=== PATIENT | male | born 1955 | race Caucasian/White ===

== ENCOUNTER 2021-03-29 10:06 | Inpatient (IN) | payer OTHER ==
[2021-03-29] MEDS ORDERED: CEFEPIME/SWI 1gm 10 ML ONE ×2 (14:18→21:39)
[2021-03-29] MEDS ORDERED: NA CHLORIDE 0.9% 3,000 ML ONE (14:18)
--- NOTE | 2021-03-29 14:26 | RAD REPORT ---
EXAM DESCRIPTION: RAD - Foot Left 3 View - 03/29/2021 2:20 pm CLINICAL HISTORY: assess for osteo COMPARISON: No comparisons FINDINGS: Partial amputation of the third and fifth toes. No fracture is identified. Degenerative ch anges are present at the midfoot and first MTP joint. IMPRESSION: No fracture or radiographic evidence of osteomyelitis. MRI is more sensitive in the acut e phase.
[2021-03-29 14:44] LABS: Bilirubin Direct 0.2 mg/dL (0-0.2); Bilirubin Total 0.5 mg/dL (0.2-1.0); CKMB Creatine Kinase MB 2.7 ng/mL (1.0-3.6); Potassium 3.8 mmol/L (3.5-5.1); Protein, Total 7.6 g/dL (6.4-8.2); Troponin (Emerg Dept Use Only) 0.05 ng/mL (0.0-0.045)
[2021-03-29] MEDS ORDERED: VANCOMYCIN/NS 1 gm 1 GM/250 ML BAG IV ONE (14:45)
--- NOTE | 2021-03-29 15:04 | ER ---
Nurse's Notes [facility] Name: Calvin Kincaid Age: 65 yrs Sex: Male : 1955 Arrival Date: 03/29/2021 Time: 10:15 Bed 24 Private MD: Diagnosis: Unspecified open wound, left lower leg;Cellulitis of left lower limb;Other specified sepsis Presentation: 03/29 11:05 Chief complaint: Patient states: Left foot swelling x 1 day, pt is autistic. jl7 Coronavirus screen: Client denies travel out of the [place] in the last 14 days. At this time, the client does not indicate any symptoms associated with coronavirus-19. Ebola Screen: No symptoms or risks identified at this time. Initial Sepsis Screen: Does the patient meet any 2 criteria? No. Patient's initial sepsis screen is negative. Does the patient have a suspected source of infection? No. Patient's initial sepsis screen is negative. Risk Assessment: Do you want to hurt yourself or someone else? Patient reports no desire to harm self or others. Onset of symptoms is unknown. Care prior to arrival: None. 11:05 Method Of Arrival: Ambulatory jl7 11:05 Acuity: DARI 3 jl7 Historical: - Allergies: 11:05 No Known Allergies; jl7 - Home Meds: 10:40 None [Active]; jl7 - PMHx: 11:05 Diabetes mellitus; Hypertensive disorder; Hypothyroidism; Seizure; jl7 11:08 Autisim; jl7 - Immunization history:: Client reports having NOT received the Covid vaccine. - Social history:: Smoking status: Patient reports the use of cigarette tobacco products, smokes one-half pack cigarettes per day. Screenin:49 Abuse screen: Denies threats or abuse. Nutritional screening: No deficits noted. ap3 Tuberculosis screening: No symptoms or risk factors identified. Fall Risk No fall in past 12 months (0 pts). Secondary diagnosis (15 points) seizures, impaired mobility, IV access (20 points). Ambulatory Aid- None/Bed Rest/Nurse Assist (0 pts). Gait- Impaired (20 pts.). Mental Status- Oriented to own ability (0 pts). Assessment: 13:40 General: Appears in no apparent distress. comfortable, Behavior is calm, cooperative, ap3 appropriate for age. Pain: Complains of pain in ball of left foot Pain does not radiate. Neuro: Level of Consciousness is awake, alert, obeys commands, Oriented to person, place, time, patient has hx of autism. . Cardiovascular: Patient's skin is warm and dry. Respiratory: Airway is patent Respiratory effort is even, unlabored, Respiratory pattern is regular, symmetrical. GI: No signs and/or symptoms were reported involving the gastrointestinal system. : No signs and/or symptoms were reported regarding the genitourinary system. EENT: No signs and/or symptoms were reported regarding the EENT system. Derm: Skin is. Derm: Musculoskeletal: Swelling present in right leg and left leg. 14:53 Reassessment: Patient and/or family updated on plan of care and expected duration. Pain ap3 level reassessed. Patient is alert, oriented x 3, equal unlabored respirations, skin warm/dry/pink. family member is at the bedside. Vital Signs: 11:05 BP 147 / 59; Pulse 84; Resp 17; Temp 98.2; Pulse Ox 100% on R/A; Weight 99.79 kg; jl7 Height 6 ft. 2 in. (187.96 cm); Pain 0/10; 14:01 BP 162 / 73; Pulse 87; Pulse Ox 100% on R/A; ap3 15:03 BP 155 / 71; Pulse 84; Resp 27; Pulse Ox 97% on R/A; ap3 11:05 Body Mass Index 28.25 (99.79 kg, 187.96 cm) jl7 ED Course: 10:15 Patient arrived in ED. am2 10:40 Triage completed. jl7 10:46 Lisa Solorio, RN is Primary Nurse. iw 11:07 Arm band placed on right wrist. Patient placed in waiting room, Patient notified of jl7 wait time. 13:34 Lima Hager is Attending Physician. sp3 13:50 Patient has correct armband on for positive identification. Bed in low position. Call ap3 light in reach. Side rails up X2. Adult w/ patient. Pulse ox on. NIBP on. Door closed. Noise minimized. 14:01 X-Ray at the bedside. ap3 14:19 XRAY Foot LEFT 3 View In Process Unspecified. EDMS 14:52 Dressings: Vaseline gauze X 1; ball of left foot. ap3 15:00 Primary Nurse role handed off by Lisa Solorio RN ap3 15:00 Dolores Reed RN is Primary Nurse. ap3 15:02 Flip Tse MD is Hospitalizing Provider. sp3 18:51 ultrrasound at bedside. ap3 19:18 Primary Nurse role handed off by Dolores Reed RN mw2 Administered Medications: 14:00 Drug: NS 0.9% (30 ml/kg) 30 ml/kg {Note: 2,991 ml.} Route: IV; Rate: bolus; Site: right ap3 antecubital; 14:30 Drug: Cefepime 1 grams Route: IVPB; Rate: 200 ml/hr; Infused Over: 30 mins; Site: left ap3 antecubital; 17:42 Follow up: IV Status: Completed infusion ap3 17:42 Drug: vancoMYCIN 1 grams Route: IVPB; Infused Over: 2 hrs; Site: left antecubital; ap3 Outcome: 15:04 Decision to Hospitalize by Provider. sp3 08 18:27 Patient left the ED. mt Signatures: Dispatcher [employer] EDMS Lisa Solorio RN RN Amari Dunbar RN RN jl7 Dolores Gallo am2 Alaina Schmidt sd Dolores Reed RN RN ap3 Grover Lim mw2 Lima Hager sp3 Corrections: (The following items were deleted from the chart) 03/29 10:41 10:40 Allergies: No Known Allergies; [place] [address] 11:05 10:36 Chief complaint: Patient states: Bilateral legs went number, vision went blurry jl7 and my head hurt like a severe migraine at 0530 this morning, lasting 15 minutes; symptoms resolved except the headache; vision also went blurry last night 7 11: 10:36 Coronavirus screen: Client denies travel out of the [place] in the last 14 days. At [facility] this time, the client does not indicate any symptoms associated with coronavirus-19. jl7 11:05 10:36 Ebola Screen: No symptoms or risks identified at this time. [place] [address] 11:05 10:36 Initial Sepsis Screen: Does the patient meet any 2 criteria? No. Patient's [facility] initial sepsis screen is negative. Does the patient have a suspected source of infection? No. Patient's initial sepsis screen is negative. [facility] 10:36 Risk Assessment: Do you want to hurt yourself or someone else? Patient reports no [facility] desire to harm self or others. [facility] 10:36 Onset of symptoms is unknown. [facility] 10:36 Care prior to arrival: None. [place] [address] 10:36 Method Of Arrival: Ambulatory [place] [address] 10:36 BP 153 / 78; Pulse 107bpm; Resp 17bpm; Pulse Ox 97%; Temp 98.5F; 86.18 kg; Height [facility] 5 ft. 2 in.; BMI: 34.7; Pain 10/10; [facility] 10:36 Acuity: DARI 3 [place] [address] 10:40 Allergies: Amoxicillin; [place] [address] 10:40 PMHx: None; [facility] 10:40 PSHx: section; [place] [address] 10:40 Arm band placed on right wrist. [place] [address] 11:05 Chief complaint: Patient states: Left foot swelling x 1 day [place] [id number]
--- NOTE | 2021-03-29 15:04 | EDPHYS ---
Physician Documentation [facility] Name: Calvin Kincaid Age: 65 yrs Sex: Male : 1955 Arrival Date: 03/29/2021 Time: 10:15 Bed 24 Private MD: ED Physician Lima Hager HPI: 03/29 14:13 This 65 yrs old Male presents to ER via Ambulatory with complaints of Leg sp3 Swelling, foot swelling, Wound Infection, Fever. 14:13 5-year-old male with a history of autism, epilepsy, hypertension, diabetes, chronic sp3 left plantar wound, who presents to the ED for infection, swelling, redness of his left plantar foot along with T-max fever 102 Fahrenheit at home yesterday evening. Patient also obtained a abrasion/surface laceration while walking barefoot during their house moving process which may have also contributed to patient's current symptoms. Caregiver is [id number] who is also at the bedside. Patient sister is a nurse who finally assessed the wound and suspected sepsis which is why they present to the ED today. Patient denies any pain, redness, swelling proximal to the foot. On ROS patient denies URI symptoms known COVID-19 contacts, neck pain, chest pain, shortness breath, abdominal pain, nausea, vomiting, diarrhea, syncope, near syncope, other rash, change in baseline neurological sensory status.. Historical: - Allergies: 11:05 No Known Allergies; jl7 - Home Meds: 10:40 None [Active]; jl7 - PMHx: 11:05 Diabetes mellitus; Hypertensive disorder; Hypothyroidism; Seizure; jl7 11:08 Autisim; jl7 - Immunization history:: Client reports having NOT received the Covid vaccine. - Social history:: Smoking status: Patient reports the use of cigarette tobacco products, smokes one-half pack cigarettes per day. ROS: 14:16 Eyes: Negative for injury, pain, redness, and discharge, ENT: Negative for injury, sp3 pain, and discharge, Neck: Negative for injury, pain, and swelling, Cardiovascular: Negative for chest pain, palpitations, and edema, Respiratory: Negative for shortness of breath, cough, wheezing, and pleuritic chest pain, Abdomen/GI: Negative for abdominal pain, nausea, vomiting, diarrhea, and constipation, Neuro: Negative for headache, weakness, numbness, tingling, and seizure. 14:16 Constitutional: Positive for fever. 14:16 Skin: Positive for cellulitis, discoloration, erythema, swelling, Negative for abscesses, jaundice, pallor. Exam: 14:17 Constitutional: This is a well developed, well nourished patient who is awake, alert, sp3 and in no acute distress. Head/Face: Normocephalic, atraumatic. Eyes: Pupils equal round and reactive to light, extra-ocular motions intact. Lids and lashes normal. Conjunctiva and sclera are non-icteric and not injected. Cornea within normal limits. Periorbital areas with no swelling, redness, or edema. ENT: Nares patent. No nasal discharge, no septal abnormalities noted. External auditory canals are clear. Oropharynx with no redness, swelling, or masses, exudates, or evidence of obstruction, uvula midline. Mucous membranes moist. Neck: Trachea midline, no thyromegaly or masses palpated, and no cervical lymphadenopathy. Supple, full range of motion without nuchal rigidity, or vertebral point tenderness. No Meningismus. Chest/axilla: Normal chest wall appearance and motion. Nontender with no deformity. No lesions are appreciated. Cardiovascular: Regular rate and rhythm with a normal S1 and S2. No gallops, murmurs, or rubs. Normal PMI, no JVD. No pulse deficits. Respiratory: Lungs have equal breath sounds bilaterally, clear to auscultation and percussion. No rales, rhonchi or wheezes noted. No increased work of breathing, no retractions or nasal flaring. Abdomen/GI: Soft, non-tender, with normal bowel sounds. No distension or tympany. No guarding or rebound. No evidence of tenderness throughout. 14:17 Skin: cellulitis, Patient is a plantar wound which is draining serosanguineous fluid and moderate swelling of the foot itself along with ecchymoses, discoloration, erythema consistent with moderate to severe soft tissue infection. No other SIRS criteria are present., induration, lesion(s). Vital Signs: 11:05 BP 147 / 59; Pulse 84; Resp 17; Temp 98.2; Pulse Ox 100% on R/A; Weight 99.79 kg; jl7 Height 6 ft. 2 in. (187.96 cm); Pain 0/10; 14:01 BP 162 / 73; Pulse 87; Pulse Ox 100% on R/A; ap3 15:03 BP 155 / 71; Pulse 84; Resp 27; Pulse Ox 97% on R/A; ap3 11:05 Body Mass Index 28.25 (99.79 kg, 187.96 cm) jl7 MDM: 13:34 Patient medically screened. sp3 14:19 Data reviewed: vital signs, nurses notes, lab test result(s), radiologic studies. Other sp3 consultation: Not suspecting gas-forming bacteria or surgical emergency. Will admit patient and obtain laboratory values, blood cultures, x-ray to determine osteomyelitis, start patient on vancomycin and cefepime for early sepsis. Patient is hemodynamically stable.. 14:59 ED course: EKG demonstrates normal sinus rhythm at 85 bpm with normal intervals, normal sp3 axis, normal QRS with nonspecific diffuse ST/T changes concerning for acute coronary syndrome at this time given clinical history. Patient's been started on cefepime and vancomycin will admit to the hospitalist services patient is from [place] and has no local physicians.. 15:00 ED course: Normal saline 1 L will also be given for a lactate of 2.4 which is mildly sp3 elevated.. 03/29 13:47 Order name: Basic Metabolic Panel 3 03/29 13:47 Order name: Blood Culture Adult (2) 3 03/29 13:47 Order name: CBC with Diff 3 03/29 13:47 Order name: CPK 3 03/29 13:47 Order name: Ckmb; Complete Time: 15:00 3 03/29 13:47 Order name: LFT's; Complete Time: 15:00 sp3 03/29 13:47 Order name: Lactate; Complete Time: 15:00 3 03/29 13:47 Order name: Lipase; Complete Time: 15:00 3 03/29 13:47 Order name: Procalcitonin; Complete Time: 15:00 3 03/29 13:47 Order name: Protime (+inr) 3 03/29 13:47 Order name: Ptt, Activated sp3 03/29 13:47 Order name: Troponin (emerg Dept Use Only); Complete Time: 15:00 3 03/29 13:48 Order name: Basic Metabolic Panel; Complete Time: 15:00 EDMS 03/29 13:48 Order name: Blood Culture [facility] 03/29 13:48 Order name: CBC with Automated Diff; Complete Time: 23:54 EDMS 03/29 13:48 Order name: Creatine Phosphokinase; Complete Time: 15:00 EDMS 03/29 14:31 Order name: Wound Culture ap3 03/29 15:41 Order name: SARS-COV-2 RT PCR; Complete Time: 23:54 EDMS 03/29 15:59 Order name: Lipid Profile [facility] 03/29 15:59 Order name: Hemoglobin A1c; Complete Time: 23:54 EDMS 03/29 20:31 Order name: Lactate Sepsis 2 HR Follow-up; Complete Time: 23:54 EDMS 03/29 21:23 Order name: Glucose, Ancillary Testing; Complete Time: 23:54 EDMS 03/29 22:22 Order name: Phosphorus; Complete Time: 23:54 MS 03/29 22:22 Order name: Creatine Phosphokinase; Complete Time: 23:54 MS 03/29 22:22 Order name: Lipid Profile; Complete Time: 23:54 EDMS 03/29 22:22 Order name: Magnesium; Complete Time: 23:54 MS 03/30 03:39 Order name: CBC with Automated Diff [facility] 03/30 04:05 Order name: Basic Metabolic Panel [facility] 03/30 04:05 Order name: Phosphorus [facility] 03/29 13:47 Order name: Accucheck; Complete Time: 14:30 3 03/29 13:47 Order name: Cardiac monitoring; Complete Time: 13:52 [facility] 03/29 13:47 Order name: EKG - Nurse/Tech; Complete Time: 14:51 3 03/29 13:47 Order name: IV Saline Lock - Large Bore; Complete Time: 13:52 3 03/29 13:47 Order name: Labs collected and sent; Complete Time: 13:52 3 03/29 13:47 Order name: XRAY Foot LEFT 3 View; Complete Time: 15:00 3 03/29 14:29 Order name: Labs - recollect needed: cbc \T\ pt/ptt; Complete Time: 15:43 3 03/29 18:18 Order name: MRI; Complete Time: 23:54 EDMS 03/29 18:27 Order name: RAD; Complete Time: 23:54 EDMS 03/29 19:36 Order name: US; Complete Time: 23:54 EDMS 03/29 19:40 Order name: US; Complete Time: 23:54 EDMS 03/29 21:33 Order name: US; Complete Time: 23:54 EDMS 03/30 04:05 Order name: T4 Free EDMS 03/30 04:05 Order name: Magnesium EDMS 03/30 04:05 Order name: Thyroid Stimulating Hormone EDMS 03/30 07:56 Order name: Glucose, Ancillary Testing EDMS 03/30 13:23 Order name: Glucose, Ancillary Testing EDMS Administered Medications: 14:00 Drug: NS 0.9% (30 ml/kg) 30 ml/kg {Note: 2,991 ml.} Route: IV; Rate: bolus; Site: right ap3 antecubital; 14:30 Drug: Cefepime 1 grams Route: IVPB; Rate: 200 ml/hr; Infused Over: 30 mins; Site: left ap3 antecubital; 17:42 Follow up: IV Status: Completed infusion ap3 17:42 Drug: vancoMYCIN 1 grams Route: IVPB; Infused Over: 2 hrs; Site: left antecubital; ap3 Disposition Summary: 03/29/21 15:04 Hospitalization Ordered Hospitalization Status: Inpatient Admission sp3 Provider: Flip Tse sp3 Condition: Fair sp3 Problem: an acute exacerbation sp3 Symptoms: have worsened sp3 Bed/Room Type: Standard sp3 Location: [facility] ER HOLD(03/29/21 16:04) bd Room Assignment: ERHOLD-(03/29/21 16:04) bd Diagnosis - Unspecified open wound, left lower leg sp3 - Cellulitis of left lower limb sp3 - Other specified sepsis sp3 Forms: - Medication Reconciliation Form sp3 - SBAR form sp3 Signatures: Dispatcher [employer] EDMS Cheyenne Collazo Lee, SLEEP MEDICINE PHYSICIAN-C SLEEP MEDICINE PHYSICIAN-Cla1 Amari Dunbar RN RN jl7 [place] Amanda, RN RN ap3 Lima Hager sp3 Corrections: (The following items were deleted from the chart) 10:41 10:40 Allergies: No Known Allergies; love aleman 10:53 10:43 Head Brain Wo Cont+CT.RAD.DELMER ordered. EDMS EDMS 11: 10:40 Allergies: Amoxicillin; jl7 jl7 11: 10:40 PMHx: None; jl7 jl7 11: 10:40 PSHx: section; jl7 jl7 14:44 13:59 CORONAVIRUS+MR.LAB.DELMER ordered. EDMS EDMS 16:04 15:04 Telemetry/MedSurg (Inpatient) sp3 bd 16:04 15:04 sp3 bd
[2021-03-29] MEDS ORDERED: HYDROCODONE/APAP 5/325 MG TAB PO PRN (16:20)
[2021-03-29] MEDS ORDERED: ONDANSETRON 4 MG/2 ML VIAL IV PRN ×2 (16:20→16:23)
[2021-03-29] MEDS ORDERED: ACETAMINOPHEN 500 MG TAB PO PRN (16:23)
--- NOTE | 2021-03-29 16:29 | P.HP ---
Certification for Inpatient Patient admitted to: Inpatient With expected LOS: >2 Midnights Patient will require the following post-hospital care: None Practitioner: I am a practitioner with admitting privileges, knowledge of patient current condition, hospital course, and medical plan of care. Services: Services provided to patient in accordance with Admission requirements found in Title 42 Section 412.3 of the Code of Federal Regulations <Demetris Dixon - Last Filed: 03/29/21 16:47> Patient admitted to: Inpatient Patient will require the following post-hospital care: Other (LTAC) Practitioner: I am a practitioner with admitting privileges, knowledge of patient current condition, hospital course, and medical plan of care. Services: Services provided to patient in accordance with Admission requirements found in Title 42 Section 412.3 of the Code of Federal Regulations <Sam Villa - Last Filed: 03/29/21 17:01> Patient History Date of Service: 03/29/21 Reason for admission: Left foot cellulitis\wound History of Present Illness: Patient is a 65-year-old male with a past medical history significant for hypertension, DM 2, hypothyroidism, seizure, autism who presents with complaint of left foot swelling, redness and left plantar foot wound infection. Family reported that patient has been having a chronic left plantar wound for the past 1 year but did notice drainage coming from patient's left foot 2 days ago. Patient resides in [place], [place] and patient reported that he suffered an abrasion to the left foot during the time that they were moving stuff for travel. Patient does not have any feeling in her lower extremities. Patient reported associated signs and symptoms of fever and chills. Patient denies any other signs or symptoms. Symptoms are aggravated or relieved by nothing. Family decided to send patient to the hospital for medical evaluation. Home medications list reviewed: No - Past Medical/Surgical History Diabetic: Yes -: Hypothyroidism -: Hypertension -: DM2 -: Autism Past Surgical History: Reviewed- Non-Contributory - Family History Family History: Reviewed- Non-Contributory (Reviewed and Patient unaware of any family history) - Social History Smoking Status: Former smoker Alcohol use: No Caffeine use: Yes Place of Residence: Home <Demetris Dixon - Last Filed: 03/29/21 16:47> Date of Service: 03/29/21 - Past Medical/Surgical History Psychosocial/ Personal History: Lives with Sister. From [place] - Family History Family History: Reviewed- Non-Contributory <Sam Villa - Last Filed: 03/29/21 17:01> Allergies No Known Allergies Allergy (Unverified 03/29/21 14:35) Review of Systems General: Fever, Chills Eyes: Unremarkable ENT: Unremarkable Respiratory: Unremarkable Cardiovascular: Unremarkable Gastrointestinal: Unremarkable Genitourinary: Unremarkable Musculoskeletal: Other (Left foot swelling) Integumentary: Other (left foot wound ) Neurological: Unremarkable Lymphatics: Unremarkable <DestinyDemetris E - Last Filed: 03/29/21 16:47> Physical Examination - Physical Exam General: Alert, In no apparent distress, Oriented x3 HEENT: Atraumatic, PERRLA, Mucous membr. moist/pink, EOMI, Sclerae nonicteric Neck: Supple, 2+ carotid pulse no bruit, No LAD, Without JVD or thyroid abnormality Respiratory: Clear to auscultation bilaterally, Normal air movement Cardiovascular: Regular rate/rhythm, Normal S1 S2 Capillary refill: <2 Seconds Gastrointestinal: Normal bowel sounds, Soft and benign, No tenderness Musculoskeletal: Swelling, Erythema, Tenderness Integumentary: No rashes, Erythema, Diabetic ulcer, Other (Left foot wound) Neurological: Normal gait, Normal speech, Normal tone, Normal affect Lymphatics: No axilla or inguinal lymphadenopathy External genitalia: Deferred Rectal: Deferred - Studies Laboratory Data (last 24 hrs) 03/29/21 13:55: Sodium 137, Potassium 3.8, BUN 29 H, Creatinine 1.43 H, Glucose 301 H, Total Bilirubin 0.5, AST 37, ALT 60, Alkaline Phosphatase 76, Lipase 120 <DestinyDemetris Angelina - Last Filed: 03/29/21 16:47> - Studies Laboratory Data (last 24 hrs) 03/29/21 13:55: Sodium 137, Potassium 3.8, BUN 29 H, Creatinine 1.43 H, Glucose 301 H, Total Bilirubin 0.5, AST 37, ALT 60, Alkaline Phosphatase 76, Lipase 120 <Sam Villa - Last Filed: 03/29/21 17:01> Assessment and Plan - Plan --Left foot cellulitis. Blood cultures pending. Continue antibiotics. --Left foot wound. Patient has a history of osteomyelitis. MRI left foot pen ding to rule out osteomyelitis. Wound cultures pending. Surgeon consulted. Continue antibiotics. --DM2. Poorly controlled. BS monitoring with sliding scale insulin, pre-meal insulin and Lantus. --History of autism. Continue supportive care. --Hypothyroidism. Continue home medication available. --Hypertension. Poorly controlled. Continue home medications when available and labetalol as needed. --History of seizures. Seizure precautions. Continue home medications when available --DVT prophylaxis with heparin subQ I have had discussion about advanced directives with the patient during this hospital admission. Addressed code status and /or goals of care. Spent more than 15 minutes. Case discussed withpatient and nurse. Discharge Plan: Home Plan to discharge in: 48 Hours - Advance Directives Does patient have a Living Will: No Does patient have a Durable POA for Healthcare: No - Code Status/Comfort Care Code Status Assessed: Yes Code Status: Full Code Physician Review: Patient Assessed, Agree with Above Assessment and Plan Critical Care: No <Demetris Dixon E - Last Filed: 03/29/21 16:47> - Plan As discussed with nurse practitioner. Agree with plan of care. COVID: Negative Left foot x-ray: COMPARISON: No comparisons FINDINGS: Partial amputation of the third and fifth toes. No fracture is identified. Degenerative changes are present at the midfoot and first MTP joint. IMPRESSION: No fracture or radiographic evidence of osteomyelitis. MRI is more sensitive in the acute phase. Impression: Left foot cellulitis with suspected osteomyelitis Diabetes mellitus type 2 with hyperglycemia insulin-dependent Acute renal insufficiency Hypertension Hypothyroidism Seizure disorder Obesity Plan: Left foot cellulitis with suspected osteomyelitis: Patient will be admitted for treatment. Will start vancomycin and and cefepime. Pharmacy to monitor and adjust medication. Will check MRI of the left lower extremity to further evaluate. Will also check arterial Dopplers of the lower extremity to evaluate for PAD. Surgery consulted. Will discuss with surgery about the possible need for intervention. Amputation may need to be considered. If with osteomyelitis patient will likely require long-term acute care facility placement for prolonged IV antibiotic therapy. Will order PICC line. Will obtain echocardi ogram. Await further recommendations from surgery. Diabetes mellitus type 2 with hyperglycemia insulin-dependent: Will monitor Accu-Cheks. Sliding scale in place. Will check hemoglobin A1c. Will start basal insulin after surgery. Acute renal insufficiency: We will start IV fluids. Will monitor renal function. Will check renal ultrasound. Hypertension: Obtain and verify home medication. Hypothyroidism: Obtain and verify how medication. Seizure disorder: Obtain and verify how medication. Obesity: We will check BMI. Lifestyle modification education provided. DVT prophylaxis: Lovenox CODE STATUS: Full code Advance care [id number] minutes: Patient originally from [place]. Lives with sister who travels as a traveling nurse. Patient will likely require long-term acute care facility placement. This was discussed with family member. Time Spent Managing Pts Care (In Minutes): 55 <Sam Villa - Last Filed: 03/29/21 17:01>
[2021-03-29] MEDS: INSULIN -REGULAR HUMAN 50 UNIT/0.5 ML ML SQ SCH ×2 (16:30→21:19)
[2021-03-29] MEDS ORDERED: VANCOMYCIN/NS 1 gm 1 GM/250 ML BAG IVPB SCH (16:30)
[2021-03-29] MEDS ORDERED: D50W 25 GM/50 ML SYRINGE IV PRN (16:45)
[2021-03-29] MEDS ORDERED: GLUCAGON 1 MG/VIAL IM PRN (16:45)
[2021-03-29] MEDS: HEPARIN 5000 UNIT/ML 1 ML VIAL SQ SCH (17:00)
[2021-03-29] MEDS ORDERED: INSULIN LISPRO 100 UNIT/1 ML SQ SCH (17:00)
[2021-03-29] MEDS ORDERED: HYDROCODONE/APAP 7.5/325 MG TAB PO PRN (17:05)
[2021-03-29] MEDS ORDERED: TRAMADOL HCL 50 MG TAB PO PRN (17:05)
[2021-03-29] MEDS: VANCOMYCIN 750 MG in NA CHLORIDE 0.9% 150 ML IVPB ONE ×2 (18:00→20:29)
[2021-03-29] MEDS: NA CHLORIDE 0.9% 1,000 ML IV SCH (18:00)
[2021-03-29] MEDS ORDERED: VANCOMYCIN 1.75 GM in NA CHLORIDE 0.9% 500 ML IVPB SCH (18:00)
[2021-03-29 18:15] VITALS: BMI 28.2
--- NOTE | 2021-03-29 18:17 | RAD REPORT ---
EXAM DESCRIPTION: MRI - Foot Left Wo Cont - 03/29/2021 5:52 pm CLINICAL HISTORY: R O Osteomyelitis COMPARISON: Foot Left 3 View dated 03/29/2021 FINDINGS: There is diffuse edema throughout the subcutaneous tissues of the left foot. There are adv anced degenerative changes at the first MTP joint as well as with synovial thickening and enhancement and joint fluid. There are erosions along the metatarsal head. There is a wound is subjacent to the great toe and second toe at the level of the metatarsal joints. Postsurgical changes from partial amputation of the fifth digit at the level of the MTP joint and par tial resection of the third proximal phalanx. IMPRESSION: No definite evidence of osteomyelitis however difficult to entirely exclude a septic shar nt at the first MTP. No abscess.
--- NOTE | 2021-03-29 18:26 | RAD REPORT ---
EXAM DESCRIPTION: RAD - Chest Single View - 03/29/2021 6:05 pm CLINICAL HISTORY: preop COMPARISON: No comparisons FINDINGS: No evidence of edema or pneumonia. The heart size is within normal limits.No acute osseous abnormality. No significant pleural effusions or pneumothorax. IMPRESSION: No acute cardiopulmonary disease.
--- NOTE | 2021-03-29 19:34 | RAD REPORT ---
EXAM DESCRIPTION: US - Extremity Venous Uni Ltd - 03/29/2021 7:25 pm CLINICAL HISTORY: Left lower extremity cellulitis COMPARISON: None. TECHNIQUE: Real-time sonographic evaluation of the left lower extremity deep venous system was perfo rmed. FINDINGS: Normal compressibility, flow augmentation, phasic flow and spontaneous flow is identified in the left lower extremity deep venous system. No intraluminal filling defects seen. Incidental note of an enlarged left inguinal lymph node measuring 2.7 centimeters. IMPRESSION: No DVT in the left lower extremity. Enlarged left inguinal lymph node. This may be reac tive to the process in the left lower extremity but could also represent malignancy.
--- NOTE | 2021-03-29 19:39 | RAD REPORT ---
EXAM DESCRIPTION: US - Renal Ultrasound-Complete - 03/29/2021 7:25 pm CLINICAL HISTORY: acute renal insufficiency, DM/HTN COMPARISON: No comparisonsNo comparisons FINDINGS: Both kidneys are normal in size, shape and echotexture. The right kidney measures 11.5 cm. No hydronephrosis or perinephric fluid. 13 millimeter right upper pole renal cyst. The left kidney measures 10.5 cm. No hydronephrosis, focal mass or perinephric fluid. The urinary bladder is incompletely distended without gross abnormality seen. IMPRESSION: No evidence of hydronephrosis. Small right renal cyst.
[2021-03-29 20:28] LABS: Absolute Lymphocytes (CBC) 1.1 K/uL (0.7-4.9); Basophils % 0.3 % (0-1.3); Hematocrit 34.5 % (39.6-49.0); Lymphocytes % 8.6 % (15.3-44.8); MPV 8.1 fL (7.6-11.3); RBC Red Blood Cell Count 3.81 M/uL (4.33-5.43)
[2021-03-29] MEDS ORDERED: CEFEPIME 1 GM/VIAL IV SCH (21:00)
[2021-03-29] MEDS ORDERED: INSULIN GLARGINE 100 UNITS/ML SQ SCH ×2 (21:00)
[2021-03-29] MEDS: CEFEPIME/SWI 1gm 10 ML IVP SCH (21:19)
--- NOTE | 2021-03-29 21:32 | RAD REPORT ---
EXAM DESCRIPTION: US - Lower Extremity Artery Uni Ltd - 03/29/2021 7:25 pm CLINICAL HISTORY: Leg pain COMPARISON: None FINDINGS: The common femoral, superficial femoral and popliteal arteries bilaterally demonstrate triphasic wave forms The posterior tibial and dorsalis pedis arteries demonstrate monophasic waveforms bilaterally. IMPRESSION: Monophasic waveforms in the dorsalis pedis and posterior tibial artery consistent with s evere peripheral arterial disease.
[2021-03-29 21:35] LABS: Magnesium 1.8 mg/dL (1.8-2.4); Phosphorus 1.7 mg/dL (2.5-4.9)
[2021-03-29] MEDS ORDERED: INSULIN GLARGINE 100 UNITS/ML SQ ONE (21:40)
[2021-03-29] MEDS ORDERED: INSULIN -REGULAR HUMAN 50 UNIT/0.5 ML ML ONE (21:41)
[2021-03-29] MEDS: LACTOBACILLUS/ACIDOPHILUS TAB PO SCH (22:25)
[2021-03-30] MEDS ORDERED: HEPARIN 5000 UNIT/ML 1 ML VIAL ONE (00:43)
[2021-03-30] MEDS: HEPARIN 5000 UNIT/ML 1 ML VIAL SQ SCH ×3 (01:00→17:00)
[2021-03-30 03:25] LABS: Absolute Lymphocytes (CBC) 0.9 K/uL (0.7-4.9); Basophils % 0.3 % (0-1.3); Hematocrit 30.8 % (39.6-49.0); Lymphocytes % 9.1 % (15.3-44.8); MPV 7.6 fL (7.6-11.3); RBC Red Blood Cell Count 3.44 M/uL (4.33-5.43)
[2021-03-30 03:45] LABS: Protime INR 1.14
[2021-03-30 04:01] LABS: Magnesium 1.8 mg/dL (1.8-2.4); Phosphorus 1.7 mg/dL (2.5-4.9); Potassium 3.5 mmol/L (3.5-5.1)
[2021-03-30 04:05] LABS: Thyroid Stimulating Hormone 3.77 uIU/mL (0.360-3.740)
--- NOTE | 2021-03-30 06:24 | P.PN ---
Subjective Date of Service: 03/30/21 Primary Care Provider: Lupe Mendez Chief Complaint: Left foot cellulitis\wound Subjective: Other (Overall stable.) Physical Examination - Vital Signs Temperature: 97.4 F Blood Pressure: 159/79 Pulse: 75 Respirations: 23 Pulse Ox (%): 96 - Studies Laboratory Data (last 24 hrs) 03/29/21 13:55: Sodium 137, Potassium 3.8, BUN 29 H, Creatinine 1.43 H, Glucose 301 H, Total Bilirubin 0.5, AST 37, ALT 60, Alkaline Phosphatase 76, Lipase 120 Assessment & Plan Discharge Plan: LTAC Plan to discharge in: 48 Hours Physician Review Additional Text: COVID: Negative Left foot x-ray: COMPARISON: No comparisons FINDINGS: Partial amputation of the third and fifth toes. No fracture is identi fied. Degenerative changes are present at the midfoot and first MTP joint. IMPRESSION: No fracture or radiographic evidence of osteomyelitis. MRI is more sensitive in the acute phase. CXR: COMPARISON: No comparisons FINDINGS: No evidence of edema or pneumonia. The heart size is within normal limits.No acute osseous abnormality. No significant pleural effusions or pneu mothorax. IMPRESSION: No acute cardiopulmonary disease. MRI Foot: COMPARISON: Foot Left 3 View dated 03/29/2021 FINDINGS: There is diffuse edema throughout the subcutaneous tissues of the left foot. There are advanced degenerative changes at the first MTP joint as well as with synovial thickening and enhancement and joint fluid. There are erosions along the metatarsal head. There is a wound is subjacent to the great toe and second toe at the level of the metatarsal joints. Postsurgical changes from partial amputation of the fifth digit at the level of the MTP joint and partial resection of the third proximal phalanx. IMPRESSION: No definite evidence of osteomyelitis however difficult to entirely exclude a septic joint at the first MTP. No abscess. Arterial doppler: COMPARISON: None FINDINGS: The common femoral, superficial femoral and popliteal arteries bilaterally demonstrate triphasic waveforms The posterior tibial and dorsalis pedis arteries demonstrate monophasic waveforms bilaterally. IMPRESSION: Monophasic waveforms in the dorsalis pedis and posterior tibial artery consistent with severe peripheral arterial disease. Venous doppler: COMPARISON: None. TECHNIQUE: Real-time sonographic evaluation of the left lower extremity deep venous system was performed. FINDINGS: Normal compressibility, flow augmentation, phasic flow and spontaneous flow is identified in the left lower extremity deep venous system. No intraluminal filling defects seen. Incidental note of an enlarged left inguinal lymph node measuring 2.7 centimeters. IMPRESSION: No DVT in the left lower extremity. Enlarged left inguinal lymph node. This may be reactive to the process in the left lower extremity but could also represent malignancy. Renal US: COMPARISON: No comparisonsNo comparisons FINDINGS: Both kidneys are normal in size, shape and echotexture. The right kidney measures 11.5 cm. No hydronephrosis or perinephric fluid. 13 millimeter right upper pole renal cyst. The left kidney measures 10.5 cm. No hydronephrosis, focal mass or perinephric fluid. The urinary bladder is incompletely distended without gross abnormality seen. IMPRESSION: No evidence of hydronephrosis. Small right renal cyst. Physical Exam: GENERAL: Patient overall stable. VITAL SIGNS: Reviewed HEENT: Head atraumatic NECK: Supple. LUNGS: Clear to auscultation. No crackles or wheezes are heard. HEART: Regular rate and rhythm, no appreciable gallops, rubs, murmurs or extra heart sounds ABDOMEN: Soft, nontender, and nondistended. Positive bowel sounds. No hepatosplenomegaly was noted. EXTREMITIES: Left foot unchanged with increased swelling to the lower extremity. Ecchymosis to the great toe area NEUROLOGIC: Patient with neuropathy SKIN: As above Impression: Left foot cellulitis with suspected osteomyelitis Diabetes mellitus type 2 with hyperglycemia insulin-dependent Acute renal insufficiency Hypertension Hypothyroidism Seizure disorder Obesity Plan: Left foot cellulitis with suspected osteomyelitis: Patient had MRI. Diffuse edema noted to the subcutaneous left foot. Advanced degenerative changes noted. Wound noted to the great toe and second toe at the levels of metatarsal joints. Patient with history of partial amputation of the fifth digit. Case discussed in detail with surgery. Surgery will take the patient to the operating room for further evaluation and treatment. Patient will likely require debridement. Will consult infectious disease that the patient will likely require long-term IV antibiotic therapy, aggressive wound care and possible hyperbarics postoperat ively. Continue with IV antibiotic therapy at this time. Currently on IV vancomycin and cefepime. Arterial Doppler shows severe peripheral vascular disease. PICC line ordered. Echo pending. Continue with plan of care. Plan of care discussed with patient and power of collections attorney who agree with plan. Diabetes mellitus type 2 with hyperglycemia insulin-dependent: Hemoglobin A1c 6.9. Continue Accu-Cheks and sliding scale for now. Consider restarting glipizide and Metformin after surgery. We will continue with sliding scale for now. Acute renal insufficiency: Continue IV fluids. Renal function improved. Likely discontinue tomorrow. Will monitor renal function. Renal ultrasound shows no chronic changes. Hypertension: Restart Norvasc and benazepril. Parameters in place. Hypothyroidism: Continue levothyroxine 137 mcg daily Seizure disorder: Continue Tegretol 100 mg 3 times a day Gout: Continue allopurinol 300 mg daily Hyperlipidemia: Continue with statin medication. Patient takes pravastatin 40 mg daily Obesity: We will address lifestyle modification education. DVT prophylaxis: Lovenox CODE STATUS: Full code Advance care [id number] minutes: Patient originally from [place]. Lives with sister who travels as a traveling nurse. Spoke with sister at length. Mrs. Aleman. Phone number [phone]. She agrees with plan of care for long-term acute care facility placement after surgery. Time Spent Managing Pts Care (In Minutes): 55
[2021-03-30] MEDS ORDERED: LEVOTHYROXINE SOD 0.025 MG TAB ONE (07:16)
[2021-03-30] MEDS ORDERED: LEVOTHYROXINE SOD 0.112 MG TAB ONE (07:17)
[2021-03-30] MEDS: INSULIN -REGULAR HUMAN 50 UNIT/0.5 ML ML SQ SCH ×4 (07:30→20:48)
[2021-03-30] MEDS: LEVOTHYROXINE SOD 0.025 MG TAB PO SCH ×2 (07:32)
[2021-03-30] MEDS: LEVOTHYROXINE SOD 0.112 MG TAB PO SCH (07:32)
[2021-03-30] MEDS ORDERED: POTASSIUM PHOS IN 0.9 % NACL 15 MMOL/250 ML BAG IV ONE (09:00)
[2021-03-30] MEDS: carBAMazepine 200 MG TAB PO SCH ×3 (09:00→20:46)
[2021-03-30] MEDS: FAMOTIDINE 20 MG TAB PO SCH (09:00)
[2021-03-30] MEDS: THIAMINE HCL 100 MG TABLET PO SCH (09:00)
[2021-03-30] MEDS ORDERED: MAGNESIUM SULFATE 1 gm IVPB 1 GM/100 ML BAG IV ONE ×2 (09:00→09:30)
[2021-03-30] MEDS: allopurinoL 300 MG TAB PO SCH (09:00)
[2021-03-30] MEDS: ASPIRIN EC 81 MG TAB PO SCH (09:00)
[2021-03-30] MEDS: LACTOBACILLUS/ACIDOPHILUS TAB PO SCH ×2 (09:00→20:47)
[2021-03-30] MEDS: CEFEPIME/SWI 1gm 10 ML IVP SCH ×2 (09:00→22:26)
[2021-03-30] MEDS: FOLIC ACID 1 MG TABLET PO SCH (09:00)
[2021-03-30] MEDS ORDERED: FOLIC ACID 1 MG TABLET ONE (09:29)
[2021-03-30] MEDS ORDERED: ASPIRIN EC 81 MG TAB PO ONE (09:29)
[2021-03-30] MEDS ORDERED: THIAMINE HCL 100 MG TABLET ONE (09:29)
[2021-03-30] MEDS ORDERED: carBAMazepine 200 MG TAB ONE ×2 (09:30→14:47)
[2021-03-30] MEDS ORDERED: FAMOTIDINE 20 MG TAB ONE (09:30)
[2021-03-30] MEDS ORDERED: CEFEPIME/SWI 1gm 0 ML ONE (09:31)
[2021-03-30] MEDS: NA CHLORIDE 0.9% 1,000 ML IV SCH ×2 (14:00→22:28)
[2021-03-30] MEDS ORDERED: NA CHLORIDE 0.9% 1,000 ML ONE (14:47)
[2021-03-30] MEDS ORDERED: INSULIN -REGULAR HUMAN 50 UNIT/0.5 ML ML ONE (14:47)
--- NOTE | 2021-03-30 16:28 | EKG ---
Test Date: 2021-03-29 Test Time: 14:52:32 Crisis Counselor: RADHA MEASUREMENT RESULTS: Intervals: Rate: 85 WI: QRSD: 94 QT: 342 QTc: 406 [place]: P: WI: QRS: 49 T: 55 INTERPRETIVE STATEMENTS: Atrial fibrillation Abnormal ECG No previous ECG available for comparison Electronically Signed On 03-30-21 16:24:16 CDT by Umesh Del Real
--- NOTE | 2021-03-30 17:25 | P.CNS ---
Date of Consult: 03/30/21 PC: I was asked to see this 65-year-old male regards to a diabetic ulcer on the sole of his left foot. HPC: Patient, who lives with his sister, has autism. He has noticed over the last couple of days that his foot had a breakdown on the sole. He has been trying to keep it clean with soap and water but unfortunately it has become la rger, and draining more fluid. He was brought to the emergency room for evaluation and treatment. PSHx: Previous amputation of third and fifth toe on his left foot PMHx: Autism, diabetes, coronary artery disease Social Hx: Does not smoke, no known allergies his medication list has been reviewed and is currently receiving vancomycin Sys R: States he is otherwise healthy, no medical problems that he knows of O/E: Awake alert vital signs are stable HEENT: Not jaundiced Chest: Air entry equal bilaterally Abd: NAD [place]: The sole of the left foot has an open wound measuring approximately 2 cm in size. There is chronic granulation seen as well as some foul smelling dishwater-like fluid coming from the sole of the foot. It has a distinct odor. Data: MRI demonstrated no clear evidence of osteomyelitis. Questionable fracture in the foot. There is also a lot of soft tissue swelling. Doppler arterial studies demonstrate peripheral vascular disease to the left foot most likely at the takeoff below the popliteal. No evidence of DVT Impression: Diabetic foot ulcer Plan: I will take him to the operating room for exploration and surgical debridement of this foot ulcer. The risks of the seizure were explained. He is under the guardianship of his sister, she has been contacted and consent has been obtained.
[2021-03-30] MEDS ORDERED: propofoL 200 MG/20 ML VIAL IV ONE (17:29)
[2021-03-30] MEDS ORDERED: FENTANYL CITR 100 MCG/2 ML ONE (17:29)
[2021-03-30] MEDS ORDERED: LIDOCAINE 1% MPF 30 ML VIAL ONE (17:30)
[2021-03-30] MEDS ORDERED: MIDAZOLAM HCL 2 MG/2 ML INJ ONE (17:30)
[2021-03-30] MEDS: VANCOMYCIN 1.75 GM in NA CHLORIDE 0.9% 500 ML IVPB SCH (17:41)
[2021-03-30] MEDS ORDERED: VANCOMYCIN 1.75 GM in NA CHLORIDE 0.9% 500 ML IVPB SCH (18:00)
--- NOTE | 2021-03-30 18:17 | P.OP ---
Preoperative diagnosis: Diabetic ulcer left foot Postoperative diagnosis: The same Primary procedure: Wide excision and sharp debridement of diabetic ulcer of the left foot Anesthesia: MAC Estimated blood loss: Less than 10 cc Specimen: Necrotic debris Findings: Gas in the tissue Operative Technique: The patient brought the operating room and placed supine on the table. After the induction of adequate general anesthesia, the patient was placed in mild Trendelenburg the foot was scrubbed with a Betadine solution and draped in the usual aseptic manner. Attention was turned towards his diabetic ulcer also obtain check left foot the heads of the metatarsals. The edges were sharply debrided back. Underlying gentle pressure we can see watery dishwater type fluid coming from the wound. The wound was opened over an area of blistering that extended from the third head of the metatarsal over to almost the dorsum of the foot on the ball of the big toe. This area showed full-thickness skin loss with blistering of the epidermis. This was sharply excised using 11 blade back to clean viable tissue. Underneath this we could see a another layer of separation. This was opened with an 11 blade and sharply debrided back to viable tissue. Over the heads of the sesamoid bones of the first metatarsal, there was an area of purulent material draining from that area. This was opened and again sharply debrided with 11 blade and a cutting surgical curette and selective use of a Metzenbaum scissors. At the base of the ulcer, we found that this extended between the second and remains of the fourth toe. It extended up to the dorsum of the foot. A counterincision was made on the dorsum of the foot and through this we were able to pass 1/4 inch Yessi drain to keep the wound open and ventilated to the outside. Applying pressure and inspection through all the areas that we could easily see, it appeared that most of the infected areas were under control. They were well opened up and no pockets remained. The necrotic tissue had been sharply debrided. At this point a handful of iodoform gauze was placed over the wound. It was gently held in place utilizing a Kerlix roll. At the end of the procedure the patient was stable and was sent to the recovery room. Needle sponge instrument count were correct. One drain was placed as mentioned. Complications: None Drain(s): Other (Half inch Yessi drain) Transferred to: Recovery Room Condition: Good
[2021-03-30] MEDS: ATORVASTATIN 10 MG TAB PO SCH (20:47)
[2021-03-30] MEDS ORDERED: CEFEPIME/SWI 1gm 10 ML ONE ×2 (22:21→22:27)
[2021-03-31] MEDS: HEPARIN 5000 UNIT/ML 1 ML VIAL SQ SCH ×3 (01:05→16:50)
[2021-03-31 02:07] LABS: Urine Appearance CLEAR (Clear); Urine Bilirubin NEGATIVE (Negative); Urine Blood 1+ (Negative); Urine Color YELLOW (Yellow); Urine Glucose NEGATIVE (Negative); Urine Protein 1+ (Negative); Urine Specific Gravity 1.015 (1.005-1.030)
[2021-03-31 02:24] LABS: Urine Microscopic Reflex ORDER UMIC
[2021-03-31 03:01] LABS: Urine Bacteria <20 /HPF (NONE SEEN); Urine RBC <5 /HPF (NONE SEEN)
[2021-03-31] MEDS ORDERED: VANCOMYCIN 1.75 GM in NA CHLORIDE 0.9% 500 ML IVPB SCH (06:00)
--- NOTE | 2021-03-31 06:09 | P.PN ---
Subjective Date of Service: 03/31/21 Primary Care Provider: Lupe Mendez Chief Complaint: Left foot cellulitis\wound Subjective: Other (Patient reports improvement. Patient post debridement yesterday. No complaints noted. Pain seems to be well controlled) Physical Examination - Vital Signs Temperature: 97.6 F Blood Pressure: 166/79 Pulse: 72 Respirations: 18 Pulse Ox (%): 93 - Studies Microbiology Data (last 24 hrs): 03/29/21 14:42 Wound - Left Foot Gram Stain - Final Assessment & Plan Discharge Plan: [facility] Physician Review Additional Text: COVID: Negative Left foot x-ray: COMPARISON: No comparisons FINDINGS: Partial amputation of the third and fifth toes. No fracture is identified. Degenerative changes are present at the midfoot and first MTP joint. IMPRESSION: No fracture or radiographic evidence of osteomyelitis. MRI is more sensitive in the acute phase. CXR: COMPARISON: No comparisons FINDINGS: No evidence of edema or pneumonia. The heart size is within normal limits.No acute osseous abnormality. No significant pleural effusions or pneumothorax. IMPRESSION: No acute cardiopulmonary disease. MRI Foot: COMPARISON: Foot Left 3 View dated 03/29/2021 FINDINGS: There is diffuse edema throughout the subcutaneous tissues of the left foot. There are advanced degenerative changes at the first MTP joint as well as with synovial thickening and enhancement and joint fluid. There are erosions along the metatarsal head. There is a wound is subjacent to the great t oe and second toe at the level of the metatarsal joints. Postsurgical changes from partial amputation of the fifth digit at the level of the MTP joint and partial resection of the third proximal phalanx. IMPRESSION: No definite evidence of osteomyelitis however difficult to entirely exclude a septic joint at the first MTP. No abscess. Arterial doppler: COMPARISON: None FINDINGS: The common femoral, superficial femoral and popliteal arteries bilaterally demonstrate triphasic waveforms The posterior tibial and dorsalis pedis arteries demonstrate monophasic waveform s bilaterally. IMPRESSION: Monophasic waveforms in the dorsalis pedis and posterior tibial artery consistent with severe peripheral arterial disease. Venous doppler: COMPARISON: None. TECHNIQUE: Real-time sonographic evaluation of the left lower extremity deep venous system was performed. FINDINGS: Normal compressibility, flow augmentation, phasic flow and spontaneo us flow is identified in the left lower extremity deep venous system. No intraluminal filling defects seen. Incidental note of an enlarged left inguinal lymph node measuring 2.7 centimeters. IMPRESSION: No DVT in the left lower extremity. Enlarged left inguinal lymph node. This may be reactive to the process in the left lower extremity but could also represent malignancy. Renal US: COMPARISON: No comparisonsNo comparisons FINDINGS: Both kidneys are normal in size, shape and echotexture. The right kidney measures 11.5 cm. No hydronephrosis or perinephric fluid. 13 millimeter right upper pole renal cyst. The left kidney measures 10.5 cm. No hydronephrosis, focal mass or perinephric fluid. The urinary bladder is incompletely distended without gross abnormality seen. IMPRESSION: No evidence of hydronephrosis. Small right renal cyst. Surgery: Date: 03/30/21 18:12 Preoperative diagnosis: Diabetic ulcer left foot Postoperative diagnosis: The same Primary procedure: Wide excision and sharp debridement of diabetic ulcer of the left foot Anesthesia: MAC Estimated blood loss: Less than 10 cc Specimen: Necrotic debris Findings: Gas in the tissue Physical Exam: GENERAL: Patient overall stable. VITAL SIGNS: Reviewed HEENT: Head atraumatic NECK: Supple. LUNGS: Clear to auscultation. No crackles or wheezes are heard. HEART: Regular rate and rhythm, no appreciable gallops, rubs, murmurs or extra heart sounds ABDOMEN: Soft, nontender, and nondistended. Positive bowel sounds. No hepatosplenomegaly was noted. EXTREMITIES: Left foot unchanged with increased swelling to the lower extremity. Ecchymosis to the great toe area NEUROLOGIC: Patient with neuropathy SKIN: As above Impression: Left foot cellulitis with diabetic left foot ulcer status post wide excision, sharp debridement of ulcer Diabetes mellitus type 2 with hyperglycemia insulin-dependent Acute renal insufficiency Hypertension Hypothyroidism Seizure disorder Obesity Plan: Left foot cellulitis with diabetic left foot ulcer status post wide excision, sharp debridement of ulcer: Patient had wide excision and sharp debridement of ulcer by surgery. Patient remains on IV vancomycin and cefepime. Patient with severe PVD. Patient approved for LTAC. Will transfer. Diabetes mellitus type 2 with hyperglycemia insulin-dependent: Hemoglobin A1c 6.9. Continue Accu-Cheks and sliding scale for now. Consider restarting glipizide and Metformin after surgery. We will continue with sliding scale for now. Acute renal insufficiency: Will monitor renal function. Renal ultrasound shows no chronic changes. Hypertension: Increase Norvasc 10 mg daily and benazepril 10 mg daily[address] Parameters in place. Hypothyroidism: Continue levothyroxine 137 mcg daily Seizure disorder: Continue Tegretol 100 mg 3 times a day Gout: Continue allopurinol 300 mg daily Hyperlipidemia: Continue with statin medication. Patient takes pravastatin 40 mg daily Obesity: We will address lifestyle modification education. DVT prophylaxis: Lovenox CODE STATUS: Full code Advance care minutes: Patient originally from [place]. Lives with sister who travels as a traveling nurse. Spoke with sister at length. Mrs. Aleman. Phone number [phone]. She agrees with plan of care for long-term acute care facility placement after surgery. Time Spent Managing Pts Care (In Minutes): 55
[2021-03-31 06:11] LABS: Absolute Lymphocytes (CBC) 0.8 K/uL (0.7-4.9); Basophils % 0.4 % (0-1.3); Hematocrit 32.1 % (39.6-49.0); Lymphocytes % 9.6 % (15.3-44.8); MPV 7.8 fL (7.6-11.3); Potassium 3.7 mmol/L (3.5-5.1); RBC Red Blood Cell Count 3.57 M/uL (4.33-5.43)
--- NOTE | 2021-03-31 06:36 | ECHO ---
HEIGHT: 6 ft 2 in WEIGHT: 219 lb 15.989 oz DATE OF STUDY: 03/30/[address]: Sam Villa DO 2-DIMENSIONAL: YES M.MODE: YES DOPPLER: YES COLOR FLOW: YES TDS: PORTABLE: DEFINITY: BUBBLE STUDY: DIAGNOSIS: HYPERTENSION/ CELLULITIS CARDIAC HISTORY: CATHERIZATION: NO SURGERY: NO PROSTHETIC VALVE: NO PACEMAKER: NO MEASUREMENTS (cm) DIASTOLIC (NORMALS) SYSTOLIC (NORMALS) IVSd 1.1 (0.6-1.2) LA Diam (1.9-4.0) LVEF 75% LVIDd 5.8 (3.5-5.7) LVIDs 3.2 (2.0-3.5) %FS 45% LVPWd 1.1 (0.6-1.2) Ao Diam 3.5 (2.0-3.7) 2 DIMENSIONAL ASSESSMENT: RIGHT ATRIUM: NORMAL LEFT ATRIUM: NORMAL RIGHT VENTRICLE: NORMAL LEFT VENTRICLE: NORMAL TRICUSPID VALVE: NORMAL MITRAL VALVE: NORMAL PULMONIC VALVE: NORMAL AORTIC VALVE: NORMAL PERICARDIAL EFFUSION: NONE AORTIC ROOT: NORMAL LEFT VENTRICULAR WALL MOTION: NORMAL DOPPLER/COLOR FLOW: MILD TRICUSPID REGURGITATION COMMENTS: MILD TRICUSPID REGURGITATION. NORMAL RIGHT VENTRICULAR SYSTOLIC PRESSURE. NORMAL LEFT VENTRICULAR SIZE AND FUNCTION. TECHNOLOGIST: RYANN VILLEDA
[2021-03-31] MEDS: LEVOTHYROXINE SOD 0.025 MG TAB PO SCH (06:41)
[2021-03-31] MEDS: LEVOTHYROXINE SOD 0.112 MG TAB PO SCH (06:41)
[2021-03-31] MEDS: VANCOMYCIN 1.75 GM in NA CHLORIDE 0.9% 500 ML IVPB SCH (06:42)
[2021-03-31] MEDS ORDERED: NA CHLORIDE 0.9% 250 ML ONE (06:45)
[2021-03-31] MEDS ORDERED: VANCOMYCIN 1 GM/VIAL ONE (06:45)
[2021-03-31] MEDS ORDERED: POTASSIUM CL SA 10 MEQ TAB PO ONE (07:41)
[2021-03-31] MEDS: INSULIN -REGULAR HUMAN 50 UNIT/0.5 ML ML SQ SCH ×4 (08:23→21:30)
[2021-03-31] MEDS: FOLIC ACID 1 MG TABLET PO SCH (08:25)
[2021-03-31] MEDS: ASPIRIN EC 81 MG TAB PO SCH (08:25)
[2021-03-31] MEDS: LACTOBACILLUS/ACIDOPHILUS TAB PO SCH ×2 (08:25→21:29)
[2021-03-31] MEDS: THIAMINE HCL 100 MG TABLET PO SCH (08:25)
[2021-03-31] MEDS: carBAMazepine 200 MG TAB PO SCH ×3 (08:26→21:31)
[2021-03-31] MEDS: FAMOTIDINE 20 MG TAB PO SCH (08:27)
[2021-03-31] MEDS: allopurinoL 300 MG TAB PO SCH (08:28)
[2021-03-31] MEDS ORDERED: AMLODIPINE 5 MG TAB PO SCH (09:00)
[2021-03-31] MEDS ORDERED: BENAZEPRIL 10 MG TAB PO SCH (09:00)
[2021-03-31] MEDS: CEFEPIME/SWI 1gm 10 ML IVP SCH ×2 (09:44→21:30)
--- NOTE | 2021-03-31 12:19 | P.CNS ---
Date of Consult: 03/31/21 Primary Care Provider: Lupe Mendez Chief Complaint: Left foot cellulitis\wound History of Present Illness: Patient 65 will mail the past medical history of hypertension, diabetes type 2, hypothyroidism, seizure, and autism who presented to the emergency department due to left foot swelling, erythema, and drainage. Patient states that he has had a left plantar foot wound at this is been going on for the past year and has been stable condition. However he suffered an acute abrasion to the left foot recently injuring a move. Patient states after this event he noticed purulent drainage. Patient suffers from diabetic neuropathy planned does not have co mplete sensation in his bilateral lower extremities. Patient denies associated symptoms such as fever, chills, nausea, vomiting. Patient was sent to the OR for a left foot surgical debridement performed by Dr. Acosta on 03/30. Surgical specimen pending. Blood culture showed no growth, wound culture show gram-positive cocci in pairs and chains. WBC now within normal range, patient is now afebrile. Patient empirically started on vancomycin and cefepime. Allergies No Known Allergies Allergy (Unverified 03/29/21 14:35) Home Medications: Allopurinol 300 mg PO DAILY 03/29/21 Amlodipine Besylate/Benazepril [Lotrel 10-40 mg Capsule] 1 cap PO BEDTIME 03/29/21 Carbamazepine [Tegretol Xr] 100 mg PO TID 03/29/21 Furosemide [Lasix*] 40 mg PO DAILY 03/29/21 Glipizide [Glipizide ER] 10 mg PO DAILY 03/29/21 Levothyroxine Sodium [Levothyroxine] 137 mcg PO DAILY 03/29/21 Metformin HCl 1,000 mg PO BID 03/29/21 Potassium Gluconate [Potassium] 99 mg PO DAILY 03/29/21 Pravastatin [Pravachol*] 40 mg PO BEDTIME 03/29/21 - Past Medical/Surgical History Diabetic: Yes -: Hypothyroidism -: Hypertension -: DM2 -: Autism Psychosocial/ Personal History: Lives with Sister. From [place] - Social History Smoking Status: Current every day smoker Alcohol use: No CD- Drugs: No Caffeine use: Yes Place of Residence: Home Review of Systems 10-point ROS is otherwise unremarkable Physical Examination Temp Pulse Resp BP Pulse Ox 98.2 F 68 20 166/82 H 0 L 03/31/21 11:52 03/31/21 11:52 03/31/21 11:52 03/31/21 11:52 03/31/21 11:52 General: Alert, In no apparent distress, Oriented x3 HEENT: Atraumatic, Normocephalic, Other (Poor dentition) Neck: Supple, 2+ carotid pulse no bruit Respiratory: Clear to auscultation bilaterally, Normal air movement Cardiovascular: No edema, Normal pulses Capillary refill: <2 Seconds Gastrointestinal: Normal bowel sounds, Soft and benign Musculoskeletal: No clubbing, No contractures Integumentary: Other (Left foot amputation of 3rd and 5th toes. Left foot diabetic ulcer status post surgical I&D performed on 03/30 ) Conclusions/Impression: Antibiotics: Vancomycin Start: 03/30 Stop: -- Cefepime Start: 03/29 Stop:-- Patient is on probiotic Assessment: -left foot diabetic ulcer status post surgical debridement performed on 03/30 -bilateral lower extremity diabetic neuropathy -PVD -diabetes mellitus -anemia -peripheral arterial disease. -seizure disorder -hypothyroidism -protein caloric malnutrition Plan: -x-ray of the left foot performed on 03/29 showed no evidence of osteomyelitis. MRI of left foot performed on 03/29-radiologist purported was difficult to determine if osteo or septic joint infection was present. Patient taken to OR for left foot diabetic ulcer surgical I&D on 03/30. Surgery performed by Dr. Hernandez. Yessi drain remaining. Continue current wound care per surgical team. Patient placed on vancomycin and cefepime. Vancomycin trough goal of 12- 17. Trough performed on 03/30 was 12.0. Tailor antibiotics based off culture results. -cultures: * Surgical specimen: Pending * Blood cultures performed on 03/29: No growth * Wound culture performed on 03/30: Gram-positive cocci in pairs and chains. Culture pending -arterial Doppler showed monophasic pulses were presenting severe peripheral vascular disease. Recommend vascular consultation. -venous Doppler showed no evidence of DVT however did show enlarged left inguinal lymph node, reactive versus malignant. -diabetes: Hemoglobin A1c is 6.9. Continue strict glucose monitoring for proper wound healing -medical management per primary team -continue monitor CBC and BMP -continue to monitor signs infection -please notify me or Dr. Kraft if patient clinical condition deteriorates, patient becomes febrile, WBC increases. Plan of care discussed with Dr. Kraft Thank you for consultation
[2021-03-31 13:05] VITALS: O2SAT 98
--- NOTE | 2021-03-31 14:45 | P.DS ---
Admission Date: 03/29/21 Discharge Date: 03/31/21 Primary Care Provider: Lupe Mendez Disposition[facility] Discharge Condition: GOOD Reason for Admission: Left foot cellulitis\wound Consultations: Infectious disease-Dr. Kraft Surgery-Dr. Hernandez Procedures: COVID: Negative Left foot x-ray: COMPARISON: No comparisons FINDINGS: Partial amputation of the third and fifth toes. No fracture is identified. Degenerative changes are present at the midfoot and first MTP joint. IMPRESSION: No fracture or radiographic evidence of osteomyelitis. MRI is more sensitive in the acute phase. CXR: COMPARISON: No comparisons FINDINGS: No evidence of edema or pneumonia. The heart size is within normal limits.No acute osseous abnormality. No significant pleural effusions or pneumothorax. IMPRESSION: No acute cardiopulmonary disease. MRI Foot: COMPARISON: Foot Left 3 View dated 03/29/2021 FINDINGS: There is diffuse edema throughout the subcutaneous tissues of the left foot. There are advanced degenerative changes at the first MTP joint as well as with synovial thickening and enhancement and joint fluid. There are erosions along the metatarsal head. There is a wound is subjacent to the great toe and second toe at the level of the metatarsal joints. Postsurgical changes from partial amputation of the fifth digit at the level of the MTP joint and partial resection of the third proximal phalanx. IMPRESSION: No definite evidence of osteomyelitis however difficult to entirely exclude a septic joint at the first MTP. No abscess. Arterial doppler: COMPARISON: None FINDINGS: The common femoral, superficial femoral and popliteal arteries bilaterally demonstrate triphasic waveforms The posterior tibial and dorsalis pedis arteries demonstrate monophasic waveforms bilaterally. IMPRESSION: Monophasic waveforms in the dorsalis pedis and posterior tibial artery consistent with severe peripheral arterial disease. Venous doppler: COMPARISON: None. TECHNIQUE: Real-time sonographic evaluation of the left lower extremity deep venous system was performed. FINDINGS: Normal compressibility, flow augmentation, phasic flow and spontaneous flow is identified in the left lower extremity deep venous system. No intraluminal filling defects seen. Incidental note of an enlarged left inguinal lymph node measuring 2.7 centimeters. IMPRESSION: No DVT in the left lower extremity. Enlarged left inguinal lymph node. This may be reactive to the process in the left lower extremity but could also represent malignancy. Renal US: COMPARISON: No comparisonsNo comparisons FINDINGS: Both kidneys are normal in size, shape and echotexture. The right kidney measures 11.5 cm. No hydronephrosis or perinephric fluid. 13 millimeter right upper pole renal cyst. The left kidney measures 10.5 cm. No hydronephrosis, focal mass or perinephric fluid. The urinary bladder is incompletely distended without gross abnormality seen. IMPRESSION: No evidence of hydronephrosis. Small right renal cyst. Surgery: Date: 03/30/21 18:12 Preoperative diagnosis: Diabetic ulcer left foot Postoperative diagnosis: The same Primary procedure: Wide excision and sharp debridement of diabetic ulcer of the left foot Anesthesia: MAC Estimated blood loss: Less than 10 cc Specimen: Necrotic debris Findings: Gas in the tissue Medical problem list: Left foot cellulitis with diabetic left foot ulcer status post wide excision, sharp debridement of ulcer Diabetes mellitus type 2 with hyperglycemia insulin-dependent Acute renal insufficiency Hypertension Hypothyroidism Seizure disorder Obesity Brief History of Present Illness: 65-year-old male presented with left foot swelling, redness and infection. Patient with history of chronic left plantar wound over the past year. Patient originally from [facility]. Patient evaluated emergency room. Patient found to have significant cellulitis. Patient admitted for treatment. Hospital Course: Patient presented with left foot cellulitis with diabetic left foot ulcer. Patient was given IV antibiotics. Patient was seen by surgery. Surgical intervention was recommended. Patient had wide excision and sharp debridement of the ulcer by surgery. Postoperatively patient has done well. Patient was also seen by infectious disease. Recommendation for the patient to go to long- term acute care facility to continue IV antibiotic therapy, aggressive wound care and hyperbarics. Patient has been accepted. Patient with severe PVD. Patient medically stable for transport to long-term acute care facility. At discharge patient will continue with IV vancomycin and cefepime. Patient will continue with treatment at the facility. Patient with diabetes mellitus type 2 with hyperglycemia. Patient hemoglobin A1c 6.9. Patient takes glipizide and Metformin. This can be likely restarted at the facility. Further adjustment in medication can be done at the LTAC facility. Patient with mild renal insufficiency. Renal function appears stable. Renal ultrasound unremarkable for any acute changes. Patient with hypertension. Blood pressure stable. Patient currently on Norvasc 10 mg daily and benazepril 10 mg daily. This can be further adjusted at the long-term acute care facility. Patient with hypothyroidism. At discharge patient will continue with levothyroxine 137 mcg daily. Patient with seizure disorder. Patient will continue with Tegretol 100 mg 3 times a day. Patient with gout. At discharge patient will continue with allopurinol 300 mg daily. Patient with hyperlipidemia. At discharge patient will continue with pravastatin 40 mg daily. Patient remains on Lovenox for DVT prophylaxis. Case discussed in detail with medical power of attorneysister. She agrees with plan of care. Vital Signs/Physical Exam: Temp Pulse Resp BP Pulse Ox 97.6 F 72 18 166/79 H 93 03/31/21 14:43 03/31/21 14:43 03/31/21 14:43 03/31/21 14:43 03/31/21 14:43 General: Alert, In no apparent distress, Oriented x3, Cooperative HEENT: Atraumatic Neck: Supple Respiratory: Clear to auscultation bilaterally, Normal air movement Cardiovascular: Normal pulses, Regular rate/rhythm Gastrointestinal: Normal bowel sounds Musculoskeletal: Other (Postoperative changes noted to the left foot. Bandages in place.) Integumentary: Other (As above) Neurological: Normal speech, Normal strength at 5/5 x4 extr, Normal tone Laboratory Data at Discharge: WBC 8.10 K/uL (4.3-10.9) D 03/31/21 05:22 Hgb 10.7 g/dL (13.6-17.9) L 03/31/21 05:22 Hct 32.1 % (39.6-49.0) L 03/31/21 05:22 Plt Count 264 K/uL (152-406) D 03/31/21 05:22 PT 13.1 SECONDS (9.5-12.5) H 03/30/21 03:01 INR 1.14 03/30/21 03:01 APTT 23.1 SECONDS (24.3-36.9) L 03/30/21 03:01 Sodium 137 mmol/L (136-145) 03/31/21 05:22 Potassium 3.7 mmol/L (3.5-5.1) 03/31/21 05:22 BUN 16 mg/dL (7-18) 03/31/21 05:22 Creatinine 0.87 mg/dL (0.55-1.3) 03/31/21 05:22 Glucose 173 mg/dL (74-106) H 03/31/21 05:22 Phosphorus Cancelled 03/30/21 05:00 Magnesium 2.0 mg/dL (1.8-2.4) 03/31/21 05:22 Total Bilirubin 0.5 mg/dL (0.2-1.0) 03/29/21 13:55 AST 37 U/L (15-37) 03/29/21 13:55 ALT 60 U/L (12-78) 03/29/21 13:55 Alkaline Phosphatase 76 U/L (45-117) 03/29/21 13:55 Triglycerides 175 mg/dL (<150) H 03/29/21 20:01 Triglycerides Cancelled 03/29/21 20:01 Cholesterol 117 mg/dL (<200) 03/29/21 20:01 Cholesterol Cancelled 03/29/21 20:01 HDL Cholesterol 25 mg/dL (40-60) L 03/29/21 20:01 HDL Cholesterol Cancelled 03/29/21 20:01 Cholesterol/HDL Ratio 4.68 03/29/21 20:01 Cholesterol/HDL Ratio Cancelled 03/29/21 20:01 Lipase 120 U/L (73-393) 03/29/21 13:55 Home Medications: Allopurinol 300 mg PO DAILY 03/29/21 Amlodipine Besylate/Benazepril [Lotrel 10-40 mg Capsule] 1 cap PO BEDTIME 03/29/21 Carbamazepine [Tegretol Xr] 100 mg PO TID 03/29/21 Furosemide [Lasix*] 40 mg PO DAILY 03/29/21 Glipizide [Glipizide ER] 10 mg PO DAILY 03/29/21 Levothyroxine Sodium [Levothyroxine] 137 mcg PO DAILY 03/29/21 Metformin HCl 1,000 mg PO BID 03/29/21 Potassium Gluconate [Potassium] 99 mg PO DAILY 03/29/21 Pravastatin [Pravachol*] 40 mg PO BEDTIME 03/29/21 Physician Discharge Instructions: Patient presented with left foot cellulitis with diabetic left foot ulcer. Patient was given IV antibiotics. Patient was seen by surgery. Surgical intervention was recommended. Patient had wide excision and sharp debridement of the ulcer by surgery. Postoperatively patient has done well. Patient was also seen by infectious disease. Recommendation for the patient to go to long- term acute care facility to continue IV antibiotic therapy, aggressive wound care and hyperbarics. Patient has been accepted. Patient with severe PVD. Pat ient medically stable for transport to long-term acute care facility. At discharge patient will continue with IV vancomycin and cefepime. Patient will continue with treatment at the facility. Patient with diabetes mellitus type 2 with hyperglycemia. Patient hemoglobin A1c 6.9. Patient takes glipizide and Metformin. This can be likely restarted at the facility. Further adjustment in medication can be done at the LTAC facility. Patient with mild renal insufficiency. Renal function appears stable. Renal ultrasound unremarkable for any acute changes. Patient with hypertension. Blood pressure stable. Patient currently on Norvasc 10 mg daily and benazepril 10 mg daily. This can be further adjusted at the long-term acute care facility. Patient with hypothyroidism. At discharge patient will continue with levothyroxine 137 mcg daily. Patient with seizure disorder. Patient will continue with Tegretol 100 mg 3 times a day. Patient with gout. At discharge patient will continue with allopurinol 300 mg daily. Patient with hyperlipidemia. At discharge patient will continue with pravastatin 40 mg daily. Patient remains on Lovenox for DVT prophylaxis. Case discussed in detail with medical power of attorneysister. She agrees with plan of care. Diet: ADA Activity: Non-weight bearing Followup: MOSHE MESA [Primary Care Provider] - Time spent managing pt's care (in minutes): 55
[2021-03-31 17:44] VITALS: TEMP 97.5
[2021-03-31 21:25] VITALS: BP 171/87
[2021-03-31] MEDS: ATORVASTATIN 10 MG TAB PO SCH (21:29)
[2021-04-01] MEDS: VANCOMYCIN 1.75 GM in NA CHLORIDE 0.9% 500 ML IVPB SCH (00:59)
[2021-04-01] MEDS: HEPARIN 5000 UNIT/ML 1 ML VIAL SQ SCH (01:00)
[2021-04-01] MEDS ORDERED: AMLODIPINE 10 MG TAB PO SCH (09:00)
== END 2021-04-01 02:06 | DRG 571 ==
LOC: ER 10:06 → ERHOLD 15:53 → 2ND 03-30 18:51
PROVIDERS: ADMIT Family Medicine; ATTEND Family Medicine
PROC: 0JBR0ZZ Excision of Left Foot Subcutaneous Tissue and Fascia, Open Approach (ICD-10-PCS; principal; 2021-03-30 15:00)
DX: L03.116 Cellulitis of left lower limb (principal); F84.0 Autistic disorder; E46 Unspecified protein-calorie malnutrition; E11.621 Type 2 diabetes mellitus with foot ulcer; L97.529 Non-pressure chronic ulcer of other part of left foot with unspecified severity; E11.65 Type 2 diabetes mellitus with hyperglycemia; I73.9 Peripheral vascular disease, unspecified; N28.9 Disorder of kidney and ureter, unspecified; E11.40 Type 2 diabetes mellitus with diabetic neuropathy, unspecified; I10 Essential (primary) hypertension; E03.9 Hypothyroidism, unspecified; G40.909 Epilepsy, unspecified, not intractable, without status epilepticus; M10.9 Gout, unspecified; E66.9 Obesity, unspecified; Z68.28 Body mass index [BMI] 28.0-28.9, adult; Z89.422 Acquired absence of other left toe(s); Z20.822 Contact with and (suspected) exposure to COVID-19
CPT/HCPCS: 36415; 71045; 76770; 80048; 80061; 80076; 80202; 81003; 81015; 82550; 82553; 82947; 83036; 83605; 83690; 83735; 84100; 84145; 84439; 84443; 84484; 85025; 85610; 85730; 87040; 87070; 87075; 87077; 87186; 87205; 88304; 93005; 93306; 93926; 93971; 99283; J0692; J1644; J1815; J2250; J2704; J3010; J3370; J3475; J7030; J7040; J7050; U0003